=== PATIENT | male | born 1935 | race Caucasian/White ===

== ENCOUNTER → 2017-11-30 | Outpatient (CLI) | payer OTHER ==
[~2017-11-30] MED LIST: ANTIVERT25 MG PO; ASPIR 8181 MG PO; BRILINTA90 MG PO; CASODEX 50 MG T50 M1 PO; COMPAZINE10 MG PO; DULCOLAX5 MG PO; EULEXIN 125 MG125 MG PO; FLOMAX0.4 MG PO; LIPITOR 20 MG T20 M1 PO; MIRALAX17 GM PO; NITROGLYCERIN0.4 MG SUBLING; OMEPRAZOLE40 MG PO; ONDANSETRON HCL4 M2 PO; PEPCID20 MG PO; PHENERGAN 25 MG25 M1 PO; PROCARDIA XL30 MG PO; PROMETHAZINE12.5 M1 PO; PROTONIX40 M1 PO; SENOKOT-S1 TA1 PO; STOOL SOFTENER100 MG PO; TRANSDERM-SCO1 PATC1 TOP; TYLENOL325 MG PO
== END ==
LOC: M.NUC 11-24 11:43
DX: C61 Malignant neoplasm of prostate (principal); C79.51 Secondary malignant neoplasm of bone

== ENCOUNTER → 2017-12-02 | Outpatient (CLI) | payer OTHER | LOC: M.RAD 16:12 | DX: C79.51 Secondary malignant neoplasm of bone (principal); C61 Malignant neoplasm of prostate ==

== ENCOUNTER → 2018-04-14 | Outpatient (CLI) | payer OTHER | LOC: M.RAD 16:46 | DX: M17.11 Unilateral primary osteoarthritis, right knee (principal); M16.11 Unilateral primary osteoarthritis, right hip; C79.51 Secondary malignant neoplasm of bone; Z85.46 Personal history of malignant neoplasm of prostate ==

== ENCOUNTER 2018-07-14 18:17 | Inpatient (IN) | payer OTHER ==
[~2018-07-14] VITALS: Ht 175.3 cm; Wt 68.6 kg
--- NOTE | 2018-07-14 01:00 | NUR ---
NOTIFIED DR. SKINNER OF NO AVALIABILITY OF SUBQ CALCITONIN AND PHARMACY RECOMMENDATION OF PAMIDRONATE AT 0000. NO NEW ORDERS RECEIVED.
[~2018-07-14 18:17] MED LIST changes: -CASODEX 50 MG T50 M1 PO; -COMPAZINE10 MG PO; -PROCARDIA XL30 MG PO; -STOOL SOFTENER100 MG PO
[2018-07-14 18:42] VITALS: BP 169/55
[2018-07-14 18:47] LABS: ABSOLUTE BASOPHILS 0.1 thou/uL (0.0-0.2); ABSOLUTE EOSINOPHILS 0.1 thou/uL (0.0-0.7); ABSOLUTE LYMPHOCYTES 1.2 thou/uL (0.8-5.3); ABSOLUTE MONOCYTES 0.5 thou/uL (0.0-1.2); ABSOLUTE NEUTROPHILS 3.7 thou/uL (1.6-8.1); BASOPHILS 1.1 %; EOSINOPHILS 1.7 %; HEMATOCRIT 25.1 % (42.0-52.0); HEMOGLOBIN 8.3 gm/dL (14.0-18.0); LYMPHOCYTES 21.3 %; MCH 27.5 pg (26.0-34.0); MCHC 32.9 g/dL (28.0-37.0); MCV 83.5 fL (80.0-100.0); MONOCYTES 9.7 %; MPV 6.9 fl. (7.2-11.1); NUCLEATED RBCS 0 /100WBC; PLATELET COUNT* 313 thou/uL (150-400); POLYS 66.2 %; RDW-CV 13.9 % (10.5-14.5); WBC 5.7 thou/uL (4.0-11.0)
[2018-07-14 18:57] LABS: ANION GAP 3 mmol/L (7-16); APTT 23.3 Seconds (25.0-31.3); BUN 38 mg/dL (7-18); CHLORIDE 97 mmol/L (98-107); CO2 38 mmol/L (21-32); CREATININE 2.7 mg/dL (0.6-1.3); GLUCOSE 119 mg/dL (70-99); INR 1.1; POTASSIUM 3.9 mmol/L (3.5-5.1); PROTIME 11.4 Seconds (9.20-11.50); SODIUM 138 mmol/L (136-145)
[2018-07-14] MEDS ORDERED: CASODEX 50 MG T50 M1 PO (18:58)
[2018-07-14 19:15] LABS: ALBUMIN 3.7 g/dL (3.4-5.0); ALKALINE PHOSPHATASE 393 U/L (46-116); CALCIUM 13.8 mg/dL (8.5-10.1); CK-MB MASS 0.5 ng/mL (<0.5-3.6); NT-PRO BRAIN NAT PEPTIDE 2365 pg/mL (<300); SGOT 30 U/L (15-37); SGPT 18 U/L (30-65); TOTAL BILIRUBIN 0.2 mg/dL (<0.1-1.0); TOTAL PROTEIN 7.4 g/dL (6.4-8.2); TROPONIN-I LEVEL <0.06 ng/mL (<0.06)
[2018-07-14 20:21] LABS: URINE BILIRUBIN NEGATIVE (Negative); URINE BLOOD TRACE (Negative); URINE CLARITY CLEAR; URINE COLOR YELLOW; URINE GLUCOSE-RANDOM NEGATIVE (Negative); URINE KETONES NEGATIVE (Negative); URINE LEUKOCYTES-REFLEX NEGATIVE (Negative); URINE NITRITE-REFLEX NEGATIVE (Negative); URINE PROTEIN TRACE (Negative); URINE UROBILINOGEN 0.2 E.U./dl (0.2-1.0)
[2018-07-14 20:35] LABS: SQUAMOUS 4-10 Moderate /LPF (0-3)
[2018-07-14 20:36] LABS: BACTERIA-REFLEX 1-9 Few /HPF (None Seen); CASTS None Seen /LPF (None Seen); CRYSTALS None Seen /LPF (None Seen); URINE RBC 0-2 Rare /HPF (0-2); URINE WBC-REFLEX 0-5 Rare /HPF (0-5)
[2018-07-14 21:08] VITALS: BP 177/67
[2018-07-14 22:00] VITALS: BP 185/62
--- NOTE | 2018-07-14 22:00 | NUR ---
RECEIVED REPORT FROM ENDING MACHINE OPERATOR, SHRUTHI, AT 2104. PT ARRIVED TO UNIT VIA CART AT 2134. SON AT BEDSIDE. PATIENT ORIENTED TO ROOM AND CALL LIGHT. AGRICULTURE DEPARTMENT CHAIR IN PLACE, TRACING SB/SR. CALL LIGHT WITHIN REACH. FALL PRECAUTIONS IN PLACE.
[2018-07-15 00:33] VITALS: BP 142/51
[2018-07-15 04:00] VITALS: BP 118/55
[2018-07-15 05:15] LABS: ABSOLUTE EOSINOPHILS 0.1 thou/uL (0.0-0.7); ABSOLUTE LYMPHOCYTES 1.1 thou/uL (0.8-5.3); ABSOLUTE MONOCYTES 0.6 thou/uL (0.0-1.2); ABSOLUTE NEUTROPHILS 3.3 thou/uL (1.6-8.1); BASOPHILS 0.9 %; EOSINOPHILS 1.7 %; HEMATOCRIT 23.1 % (42.0-52.0); HEMOGLOBIN 7.5 gm/dL (14.0-18.0); LYMPHOCYTES 21.4 %; MCH 27.2 pg (26.0-34.0); MCHC 32.4 g/dL (28.0-37.0); MCV 83.7 fL (80.0-100.0); MONOCYTES 11.5 %; MPV 7.2 fl. (7.2-11.1); NUCLEATED RBCS 0 /100WBC; PLATELET COUNT* 262 thou/uL (150-400); POLYS 64.5 %; RBC 2.76 mil/uL (4.50-6.00); RDW-CV 13.8 % (10.5-14.5); WBC 5.1 thou/uL (4.0-11.0)
[2018-07-15 05:35] LABS: CREATININE 2.6 mg/dL (0.6-1.3); POTASSIUM 3.8 mmol/L (3.5-5.1)
[2018-07-15 05:48] LABS: CALCIUM 13.5 mg/dL (8.5-10.1)
[2018-07-15] MEDS ORDERED: COMPAZINE10 MG PO (07:00)
[2018-07-15] MEDS ORDERED: STOOL SOFTENER100 MG PO (07:00)
--- NOTE | 2018-07-15 07:30 | NUR ---
ASSUMED CARE OF PT ASSESSED AND DOCUMENTED. PT IS ON CARDIAC MONITER TRACING SR HR 61. PT IS ON ROOM AIR AND IS AFEBRILE. PT IS ON FALL PRECAUTIONS PER FACILITY PROTOCOL. SON IS AT BEDSIDE. PT HAS NO C/O PAIN. BED IS IN LOW POSITION CALL LIGHT IS IN REACH.
[2018-07-15 08:00] VITALS: BP 166/64
[2018-07-15 12:00] VITALS: BP 140/54
--- NOTE | 2018-07-15 14:54 | EKG ---
[place] [address] ELECTROCARDIOGRAM REPORT Name: DEBORAHJEFF AZUL Room: [address] ADM IN M.R.#: [id number] Admission: 07/14/18 Attend Phys: Kit Murdock MD Discharge: Date of : 39 Report #: [id number] THIS REPORT FOR: //name// [facility] ED Test Date: 2018-07-14 Test Time: 18:27:04 Pat Name: JEFF CABRERA Department: Room: [facility] Gender: Reporting Analyst: Sebas CHERY : 1935 Requested By: Haroon Trotter Order Number: [id number] MD: Juan Manuel Smith Measurements Intervals [place] Rate: 54 P: 77 IA: 139 QRS: 31 QRSD: 95 T: 55 QT: 413 QTc: 392 Interpretive Statements Sinus bradycardia Abnormal R-wave progression, early transition Inferior infarct, old Compared to ECG 11/22/2016 17:19:25 rate slowed Electronically Signed On 07-15-2018 14:54:13 CDT by Juan Manuel Smith [email or web address] <ELECTRONICALLY SIGNED> By: Juan Manuel Smith MD, [facility] 07/15/18 1454 1827 1827 Juan Manuel Smith MD, [facility] /EPI
--- NOTE | 2018-07-15 15:12 | NUR ---
SPOKE TO PATIENT TO DISCUSS HOME SITUATION, DISCHARGE PLANNING, AND TO INFORM OF THE ROLE OF CM. PATIENT'S NEPHEW AT THE BEDSIDE AND INFORMS THAT THE PATIENT'S 'SON HAD JUST LEFT, BUT WILL RETURN SOON'. PATIENT ALERT, BUT FORGETFUL. PATIENT RESIDES AT HOME ALONE, BUT HIS SON AND DIL LIVE IN A HOUSE BEHIND HIS ON THEIR 10 ACRES. PATIENT RECIEVES MEALS ON WHEELS, AND IS ABLE TO MICROWAVE THE MEALS HIMSELF. PATIENT OWNS A WALKER AND CANE, BUT MOSTLY USES THE CANE FOR MOBILITY. PATIENT CURRENTLY ON-SERVICE WITH HOSPICE FOR PALLIATIVE CARE. PATIENT HAS A HX OF HH WITH [facility]. CM WILL F/U WITH PATIENT'S SON TO DISCUSS DISCHARGE PLANNING NEEDS. CM WILL REMAIN AVAILABLE TO ASSIST AND FOLLOW NEEDED.
[2018-07-15 15:48] VITALS: BP 147/46
--- NOTE | 2018-07-15 17:40 | NUR ---
PT HAS RESTED IN HIS ROOM WITH SON AT BEDSIDE. HE HAS HAD NO C/O PAIN OF DISCOMFORT. PT PULLED OUT HIS IV. A NEW 20G IN L AC WAS PLACED. EDUCATION GIVEN ON DEMAND. HOURLY ROUNDING COMPLETE.
[2018-07-15 20:00] VITALS: BP 133/59
[2018-07-16] VITALS: BP 172/64; BP 189/77
[2018-07-16 04:00] VITALS: BP 189/77
--- NOTE | 2018-07-16 04:44 | NUR ---
ASSUMED PT CARE AT 1930. ASSESSMENT COMPLETED CHARTED. PT RESTING IN BED AT THIS TIME, ASKS TO BE TURNED FOR COMFORT. IV FLUIDS FINISHING. ABLE TO MAKE NEEDS KNOWN. SON BY AT THE BEGINNING OF SHIFT. NO C/O PAIN OR DISCOMFORT. WILL CONTINUE TO MONITOR.
[2018-07-16 05:48] LABS: ABSOLUTE EOSINOPHILS 0.1 thou/uL (0.0-0.7); ABSOLUTE LYMPHOCYTES 0.9 thou/uL (0.8-5.3); ABSOLUTE MONOCYTES 0.5 thou/uL (0.0-1.2); ABSOLUTE NEUTROPHILS 4.6 thou/uL (1.6-8.1); BASOPHILS 0.7 %; EOSINOPHILS 1.8 %; HEMATOCRIT 23.6 % (42.0-52.0); HEMOGLOBIN 7.7 gm/dL (14.0-18.0); LYMPHOCYTES 15.2 %; MCH 27.4 pg (26.0-34.0); MCHC 32.6 g/dL (28.0-37.0); MCV 84.1 fL (80.0-100.0); MONOCYTES 7.8 %; MPV 7.3 fl. (7.2-11.1); NUCLEATED RBCS 0 /100WBC; PLATELET COUNT* 268 thou/uL (150-400); POLYS 74.5 %; RBC 2.81 mil/uL (4.50-6.00); RDW-CV 14.1 % (10.5-14.5); WBC 6.2 thou/uL (4.0-11.0)
[2018-07-16 05:59] LABS: ALBUMIN 3.2 g/dL (3.4-5.0); CREATININE 2.5 mg/dL (0.6-1.3); POTASSIUM 3.1 mmol/L (3.5-5.1); TOTAL BILIRUBIN 0.2 mg/dL (<0.1-1.0); TOTAL PROTEIN 6.1 g/dL (6.4-8.2)
[2018-07-16 06:02] LABS: CALCIUM 12.7 mg/dL (8.5-10.1)
[2018-07-16 08:00] VITALS: BP 182/55
[2018-07-16 12:19] VITALS: BP 176/61
[2018-07-16 13:41] LABS: URINE BILIRUBIN NEGATIVE (Negative); URINE BLOOD 1+ (Negative); URINE CLARITY CLEAR; URINE COLOR YELLOW; URINE GLUCOSE-RANDOM NEGATIVE (Negative); URINE KETONES NEGATIVE (Negative); URINE LEUKOCYTES-REFLEX NEGATIVE (Negative); URINE NITRITE-REFLEX NEGATIVE (Negative); URINE PROTEIN TRACE (Negative); URINE UROBILINOGEN 0.2 E.U./dl (0.2-1.0)
[2018-07-16 13:53] LABS: BACTERIA-REFLEX 1-9 Few /HPF (None Seen); SQUAMOUS 4-10 Moderate /LPF (0-3); URINE RBC 3-10 Few /HPF (0-2); URINE WBC-REFLEX 0-5 Rare /HPF (0-5)
[2018-07-16 13:54] LABS: CRYSTALS None Seen /LPF (None Seen); FINE GRANULAR CASTS 0-3 Few /LPF (None Seen); HYALINE CASTS 0-3 Few /LPF (None Seen)
[2018-07-16 15:32] VITALS: BP 168/56
--- NOTE | 2018-07-16 18:48 | NUR ---
RECEIVED REPORT. ASSUMED CARE OF PT AROUND 0730. PT ALERT, ORIENTED TO SELF ONLY, VERY FORGETFULL BUT PLEASANT. ACCOUNT ANALYST IN PLACE TRACING SR WITH NO CHANGES THIS SHIFT. AM ASSESSMENT AND VITALS COMPLETED CHARTED. IV TO LEFT FA INTACT AND INFUSING IVF. PT HAS DENIED PAIN OR DISCOMFORT THIS SHIFT. PT SAT UP IN BEDSIDE CHAIR LATE THIS MORNING AND FOR LUNCH, THEN RESTED IN THE AFTERNOON. PT'S SON HAS BEEN AT BEDSIDE THROUGHOUT THE SHIFT. POTASSIUM REPLACED AND IS NOW IN NORMAL RANGE. PT UP TO BEDSIDE COMMODE WITH ASSISTANCE - HAD 3 BOWEL MOVEMENTS THIS SHIFT. VOIDING WITHOUT ISSUE. UA OBTANIED. PLAN FOR PT IS TO CONTINUE FLUIDS TO LOWER CALCIUM LEVELS. PT SLOWLY PROGRESSING TOWARDS GOALS. PT CURRENTLY RESTING IN BED. CALL LIGHT IS WITHIN REACH. FALL PRECAUTIONS IN PLACE. HOURLY ROUNDING PERFORMED. WCTM FOR DURATION OF SHIFT.
[2018-07-16 20:00] VITALS: BP 170/53
[2018-07-17] VITALS: BP 128/45; BP 154/63
[2018-07-17 04:00] VITALS: BP 185/73
--- NOTE | 2018-07-17 05:25 | NUR ---
ASSUMED PT CARE AT 1930. ASSESSMENT COMPLETED CHARTED. ABLE TO MAKE NEEDS KNOWN. [place] [facility] [place] RESTING MOST OF THE NIGHT WITH IVF. NO C/O PAIN, NAUSEA, OR DISCOMFORT. WILL CONTINUE TO MONITOR.
[2018-07-17 05:35] LABS: ABSOLUTE EOSINOPHILS 0.1 thou/uL (0.0-0.7); ABSOLUTE LYMPHOCYTES 0.5 thou/uL (0.8-5.3); ABSOLUTE MONOCYTES 0.3 thou/uL (0.0-1.2); ABSOLUTE NEUTROPHILS 2.8 thou/uL (1.6-8.1); BASOPHILS 0.9 %; EOSINOPHILS 1.6 %; HEMATOCRIT 21.1 % (42.0-52.0); LYMPHOCYTES 14.5 %; MCH 27.4 pg (26.0-34.0); MCV 83.1 fL (80.0-100.0); MONOCYTES 9.1 %; MPV 6.8 fl. (7.2-11.1); NUCLEATED RBCS 0 /100WBC; PLATELET COUNT* 218 thou/uL (150-400); POLYS 73.9 %; RBC 2.54 mil/uL (4.50-6.00); WBC 3.8 thou/uL (4.0-11.0)
[2018-07-17 06:13] LABS: ALBUMIN 2.9 g/dL (3.4-5.0); CALCIUM 10.8 mg/dL (8.5-10.1); CREATININE 2.3 mg/dL (0.6-1.3); POTASSIUM 3.2 mmol/L (3.5-5.1); TOTAL BILIRUBIN 0.3 mg/dL (<0.1-1.0); TOTAL PROTEIN 5.9 g/dL (6.4-8.2)
[2018-07-17 07:59] VITALS: BP 187/69
[2018-07-17 12:00] VITALS: BP 161/55
[2018-07-17 16:33] VITALS: BP 122/43
[2018-07-17 19:40] VITALS: BP 132/51
[2018-07-17 21:06] LABS: IgG 455 mg/dL (700-1600); IgM 53 mg/dL (15-143); eGFR IF AFRICAN AMERICAN 31 (>59)
[2018-07-18] VITALS: BP 153/56
[2018-07-18 02:06] LABS: PARATHYROID HORMONE 21 pg/mL (15-65)
[2018-07-18 03:07] LABS: IgA 35 mg/dL (61-437)
[2018-07-18 04:00] VITALS: BP 145/52
[2018-07-18 05:12] LABS: ABSOLUTE EOSINOPHILS 0.1 thou/uL (0.0-0.7); ABSOLUTE LYMPHOCYTES 0.9 thou/uL (0.8-5.3); ABSOLUTE MONOCYTES 0.5 thou/uL (0.0-1.2); ABSOLUTE NEUTROPHILS 2.7 thou/uL (1.6-8.1); BASOPHILS 0.9 %; EOSINOPHILS 1.3 %; MCH 27.3 pg (26.0-34.0); MCHC 32.9 g/dL (28.0-37.0); MONOCYTES 13.1 %; MPV 6.9 fl. (7.2-11.1); NUCLEATED RBCS 0 /100WBC; PLATELET COUNT* 195 thou/uL (150-400); POLYS 63.7 %; RBC 2.38 mil/uL (4.50-6.00); WBC 4.2 thou/uL (4.0-11.0)
[2018-07-18 05:40] LABS: ALBUMIN 2.8 g/dL (3.4-5.0); CALCIUM 9.5 mg/dL (8.5-10.1); CREATININE 2.2 mg/dL (0.6-1.3); TOTAL BILIRUBIN 0.2 mg/dL (<0.1-1.0); TOTAL PROTEIN 5.4 g/dL (6.4-8.2)
[2018-07-18 05:41] LABS: HEMATOCRIT 19.8 % (42.0-52.0); HEMOGLOBIN 6.5 gm/dL (14.0-18.0)
[2018-07-18 08:00] VITALS: BP 168/66
[2018-07-18 11:50] VITALS: BP 123/49; BP 127/73; BP 155/65
[2018-07-18 13:19] VITALS: BP 153/55
[2018-07-18 16:54] LABS: HEMATOCRIT 25.7 % (42.0-52.0)
[2018-07-18 16:58] LABS: HEMOGLOBIN 8.5 gm/dL (14.0-18.0)
[2018-07-18 19:40] VITALS: BP 157/59
--- NOTE | 2018-07-18 20:10 | NUR ---
PT A&OX3-4 PERIODS OF CONFUSION NOTED. PT RECEIVED BLOOD TRANSFUSION THIS SHIFT WITHOUT DIFFICULTY, NO S/S OF ADVERSE REACTION NOTED. PT UP TO RECLINER AND STATES "i DO FEEL A LITTLE BETTER," HOURLY ROUNDING MAINTAINED, CALL LIGHT IN REACH, HAS NO C/O PAIN
[2018-07-19] VITALS: BP 167/68
[2018-07-19 04:00] VITALS: BP 174/71
[2018-07-19 04:52] LABS: ABSOLUTE EOSINOPHILS 0.1 thou/uL (0.0-0.7); ABSOLUTE LYMPHOCYTES 0.9 thou/uL (0.8-5.3); ABSOLUTE MONOCYTES 0.6 thou/uL (0.0-1.2); ABSOLUTE NEUTROPHILS 3.7 thou/uL (1.6-8.1); BASOPHILS 0.9 %; HEMATOCRIT 25.7 % (42.0-52.0); HEMOGLOBIN 8.5 gm/dL (14.0-18.0); LYMPHOCYTES 16.6 %; MCH 27.5 pg (26.0-34.0); MCHC 33.2 g/dL (28.0-37.0); MCV 82.8 fL (80.0-100.0); MONOCYTES 11.6 %; MPV 6.9 fl. (7.2-11.1); NUCLEATED RBCS 0 /100WBC; PLATELET COUNT* 221 thou/uL (150-400); POLYS 68.9 %; WBC 5.3 thou/uL (4.0-11.0)
[2018-07-19 05:29] LABS: ALBUMIN 3.1 g/dL (3.4-5.0); CALCIUM 9.4 mg/dL (8.5-10.1); CREATININE 1.9 mg/dL (0.6-1.3); POTASSIUM 3.6 mmol/L (3.5-5.1); TOTAL BILIRUBIN 0.3 mg/dL (<0.1-1.0); TOTAL PROTEIN 6.4 g/dL (6.4-8.2)
[2018-07-19 08:00] VITALS: BP 176/54
--- NOTE | 2018-07-19 08:15 | NUR ---
VITALS WNL. SEE MAR. SEE CHARTING. FALL PRECAUTIONS IN PLACE. HOURLY ROUNDING FOR SAFETY.
[2018-07-19 12:08] LABS: KAPPA FREE LIGHT CHAINS 39.3 mg/L (3.3-19.4); LAMBDA FREE LIGHT CHAINS 11.7 mg/L (5.7-26.3)
[2018-07-19 13:12] VITALS: BP 155/57
--- NOTE | 2018-07-19 15:47 | NUR ---
[facility] PERSONNEL DIRECTOR SPOKE TO THE PATIENT AND FAMILY TO DISCUSS DISCHARGE PLANNING NEEDS AND SNF AT D/C. PATIENT, DTR, AND SON INFORM THAT THEY WOULD LIKE FOR THE PATIENT TO GO TO [facility], OR [facility] SPOKE TO [facility] WITH ADMISSIONS TO INFORM OF THE REFERRAL FOR SNF AND FAXED PATIENT'S CLINICAL INFO AND PT/OT NOTES. CM WILL REMAIN AVIALABLE TO ASSIST AND FOLLOW NEEDED.
[2018-07-19 16:00] VITALS: BP 132/53
--- NOTE | 2018-07-19 18:56 | NUR ---
RECEIVED REPORT FROM WILL RN. ASSUMED CARE OF PT AROUND 0730. PT ALERT, ORIENTED TO SELF, DATE/MONTH BUT NOT YEAR, AND PLACE. PT NOT FULLY ORIENTED TO SITUATION, STATES IT WAS "MANY ISSUES" THAT BROUGHT HIM TO THE HOSPITAL. INDUSTRIAL MILLWRIGHT IN PLACE TRACING SR TO SB WITH NO CHAGES THIS SHIFT. VSS. O2 SAT 98% ON RA. AM ASSESSMENT AND VITALS COMPLETED CHARTED. IV TO RIGHT FA INTACT AND SALINE LOCKED. PT HAS DENIED PAIN OR DISCOMFORT THIS SHIFT. PT HAS BEEN UP TO BEDSIDE COMMODE WITH SBA FREQUENTLY TO VOID. BM X1 THIS SHIFT. PT EATING AND DRINKING WITHOUT ISSUE. FAMILY AT BEDSIDE THROUGHOUT SHIFT. PT WORKED WITH PT AND OT THIS SHIFT. PT SLOWLY PROGRESSING TOWARDS GOALS. PT CURRENTLY RESTING IN BED. CALL LIGHT IS WITHIN REACH. FALL PRECAUTIONS ARE IN PLACE. HOURLY ROUNDING PERFORMED. WCTM FOR DURATION OF SHIFT.
[2018-07-19 19:40] VITALS: BP 139/44
[2018-07-20] VITALS: BP 171/73
[2018-07-20 04:00] VITALS: BP 171/70
[2018-07-20 05:08] LABS: HEMATOCRIT 27.9 % (42.0-52.0); HEMOGLOBIN 9.2 gm/dL (14.0-18.0); MCH 27.4 pg (26.0-34.0); MCHC 32.9 g/dL (28.0-37.0); MCV 83.3 fL (80.0-100.0); RBC 3.35 mil/uL (4.50-6.00); RDW-CV 14.1 % (10.5-14.5); WBC 5.4 thou/uL (4.0-11.0)
[2018-07-20 05:23] LABS: CALCIUM 9.1 mg/dL (8.5-10.1); CREATININE 1.8 mg/dL (0.6-1.3); MAGNESIUM 2.1 mg/dL (1.8-2.4); POTASSIUM 3.9 mmol/L (3.5-5.1)
--- NOTE | 2018-07-20 07:07 | NUR ---
VITALS WNL. SEE MAR. SEE CHARTING. FALL PRECAUTIONS IN PLACE. HOURLY ROUNDING FOR SAFETY.
--- NOTE | 2018-07-20 07:20 | NUR ---
CHANGE OF SHIFT BEDSIDE REPORT GIVEN PATIENT SEEN IN BED ASLEPP ASSUMED PATIENT CARE
[2018-07-20 07:53] VITALS: BP 171/74
--- NOTE | 2018-07-20 11:46 | NUR ---
TOW PICKER SPOKE TO GEORGIE WITH [facility] [place] AND SHE INFORMS THAT SHE WILL COME TO THE HOSPITAL TODAY TO SPEAK WITH THE PATIENT AND FAMILY TO DISCUSS POC. INFORMED THE RN IN-CHARGE PF THE PATIENT OF THIS INFO. CM WILL REMAIN AVAILABLE TO ASSIST AND FOLLOW NEEDED.
--- NOTE | 2018-07-20 11:53 | NUR ---
ORDERS NOTED FOR DC TO SNF. SPOKE WITH [facility] ORDERS FAXED. AWAIT CALL BACK WITH ACCEPTANCE AND AUTH. UPDATED PT
[2018-07-20 12:00] VITALS: BP 162/69
--- NOTE | 2018-07-20 14:17 | NUR ---
GEORGIE WITH [facility] ARRIVED TO DO AN ON-SITE VISIT WITH THE PATIENT, AND INFORMS THAT THE FACILITY SHOULD BE ABLE TO ACCEPT THE PATIENT AT D/C PENDING INSURANCE AUTH. SPOKE TO PATIENT'S SON TO INFORM OF THIS INFO, AND HE IS IN AGREEMENT. CM WILL REMAIN AVAILABLE TO ASSIST AND FOLLOW NEEDED.
[2018-07-20 16:00] VITALS: BP 120/50
[2018-07-20 20:00] VITALS: BP 126/41
[2018-07-21] VITALS: BP 160/69
[2018-07-21 04:00] VITALS: BP 169/71
--- NOTE | 2018-07-21 05:24 | NUR ---
ASSUMED PT CARE REPORT RECEIVED FROM NURSE. PT IS ALERT AWAKE ORIENTED X4. SINUS JUAN ON THE CLEAT BLANKER. PT SELPT DRUING WHOLE NIGHT. NO MED ADMITRATION PER ORDER. FALL PRECAUTION MAINTAINEED
--- NOTE | 2018-07-21 07:15 | NUR ---
CHANGE OF SHIFT BEDSIDE REPORT GIVEN PATIENT SEEN AT BEDSIDE IN BED ASLEEP ASSUMED PATIENT CARE
[2018-07-21 07:46] VITALS: BP 172/55
--- NOTE | 2018-07-21 11:36 | CON ---
[address] [address] CONSULTATION Name: DEBORAHANGELANA Mullen Room: [address] IN M.R.#: [id number] Admission: 07/14/18 Attend Phys: Kit Murdock MD Discharge: Date of : 39 Report #: [id number] THIS REPORT FOR: //name// CC: Kit Murdock Regla Britton DATE OF SERVICE: 07/15/2018 REQUESTING PHYSICIAN: Kit Murdock MD REASON FOR CONSULTATION: Hypercalcemia and acute kidney injury. 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 He was admitted with confusion. It was found to be hypercalcemic with calcium of around 14. His creatinine is also elevated, so he was started on fluids and I was consulted. PAST MEDICAL HISTORY: Prostate cancer diagnosed in 2016, followed by Dr. Gabriel. Also has history of TIA, history of coronary artery disease, and pyelonephritis. MEDICATIONS: Prior to admission reviewed. He was on ____ aspirin and Tylenol. FAMILY HISTORY: Noncontributory. SOCIAL HISTORY: Never smoked. Does not drink alcohol. REVIEW OF SYSTEMS: Positive for weakness. He had some confusion, so his review of system is unreliable. PHYSICAL EXAMINATION: GENERAL: He is awake and alert. VITAL SIGNS: His blood pressure now is 160/64 and heart rate 54, afebrile. HEENT: Pupils are round. NECK: Supple. LUNGS: Clear. CARDIOVASCULAR: Regular rate. ABDOMEN: Soft. LOWER EXTREMITIES: Trace edema. LABORATORY DATA: Report revealed serum sodium of 141, potassium 3.8, chloride 102, carbon dioxide 34, BUN 35, creatinine 2.6. Calcium is 13.5, it was 13.8 [place] [address] CONSULTATION Name: JEFF CABRERA Room: [address]#: [id number] Admission: 07/14/18 Attend Phys: Kit Murdock MD Discharge: Date of : 39 Report #: [id number] ASSESSMENT: An 82-year-old gentleman with metastatic prostate cancer involving the bones admitted with confusion. His confusion is likely due to hypercalcemia. Hypercalcemia is likely due to bone destruction due to metastatic disease. PLAN: To give him IV fluids and Lasix and also give him pamidronate. Overall, prognosis is very poor. Discussed with Dr. Murdock and with the patient's family. <ELECTRONICALLY SIGNED> By: Too Styles MD 07/21/18 1136 1051 1317Alexandr Aurelio Styles MD /nt
[2018-07-21 12:00] VITALS: BP 126/46
--- NOTE | 2018-07-21 14:34 | NUR ---
STILL AWAITING INSURANCE AUTH FOR SNF PER [facility]
--- NOTE | 2018-07-21 15:01 | NUR ---
Nutrition: Pt assessed for LOS. RX, labs, Hx noted. Admitted with AMS. Regular diet. Wt: 151#. Pt has discharge orders, but disch held d/t insurance auth for SNF. Still awaiting auth. No nutrition interventions at this time.
[2018-07-21 16:00] VITALS: BP 133/50
[2018-07-21 20:00] VITALS: BP 154/67
[2018-07-22] VITALS: BP 150/63
[2018-07-22 04:00] VITALS: BP 170/65
--- NOTE | 2018-07-22 04:35 | NUR ---
ASSUMED PT CARE AT 19:15 REPORT RECEIVED FROM NURSE. PT IS ALERT AWAKE ORIENTED X4 SINUS RYTHM ON THE MONITOR. ABLE TO REPOSITION HIMSELF IN BED. HIS VS ARE WITHIN NORMAL LIMIT. UP AT BEDSIDE FOR USE OF BEDSIDE COMMODE. PT BP IS 170/65 IN THE MORNING. HR 63. PT ASYMPTOMATIC.PT HAS HYDRALIZINE ORDERED PRN FOR BP GREATER THAN 180/100. SO NO INTERVENTION DONE. WILL CONTINUE TO MONITOR.
--- NOTE | 2018-07-22 07:00 | NUR ---
MIRALAX GIVEN PER PT REQUEST. PT HAD A BOWEL MOVEMENT THIS MORNING AT AROUND 0600. BM FORMED BROWN
[2018-07-22 08:45] VITALS: BP 173/78
--- NOTE | 2018-07-22 08:45 | NUR ---
ASSUMED PT. CARE AND RECEIVED REPORT AT 0730. PT A/OX3 WITH NOTED FORGETFULNESS. ON RA @ 98% DENIES CURRENT PAIN/SOB. UP TO CHAIR FOR BREAKFAST AND TOLERATING WELL. FULL ASSESSMENT COMPLETED, REFER TO CHARTING. PT. TO DC TODAY AT 1300 TO [facility]. SPOKE WITH PT. FAMILY ROLAND VIA PHONE, UPDATE GIVEN. CALL LIGHT IN REACH, FALL PRECUATIONS IN PLACE. WILL CONTINUE WITH PLAN OF CARE.
--- NOTE | 2018-07-22 08:46 | NUR ---
RECEIVED CALL FROM [facility], PT HAS BEEN ACCEPTED AND THEY HAVE INSURANCE AUTH. DC COIL WINDING SUPERVISOR/MARCELLA TO SET UP DC WITH [facility] AND PT
--- NOTE | 2018-07-22 10:45 | NUR ---
PRE PAROLE COUNSELING AIDE SPOKE TO THE PATIENT AND CONTACTED PATIENT'S SON TO INFORM OF [facility] ACCEPTANCE AND TIME OF TRANSPORT. PATIENT AND SON IN AGREEMENT. FAXED [facility] WITH [facility] ADMISSIONS PATIENT'S D/C ORDERS, AND SHE WILL SETUP TRANSPORT FOR 1300. SPOKE TO THE RN IN-CHARGE OF THE PATIENT TO INFORM OF [facility] ACCPETANCE, TIME OF TRANSPORT, AND WHERE TO CALL REPORT. CM WILL REMIAN AVAILABLE TO ASSIST AND FOLLOW NEEDED.
[2018-07-22] MEDS ORDERED: MIRALAX17 GM PO (11:47)
[2018-07-22 11:56] VITALS: BP 173/78
[2018-07-22 12:00] VITALS: BP 157/62
[2018-07-22] MEDS ORDERED: PROCARDIA XL30 MG PO (12:15)
--- NOTE | 2018-07-22 13:24 | NUR ---
DC ORDERS RECEIVED. IV AND MONITR REMOVED. PT. GIVEN COPY OF DC INSTRUCTIONS. REPORT CALLED TO FLACA AT [facility].
--- NOTE | 2018-07-23 09:32 | CON ---
[address] [address] CONSULTATION Name: JEFF CABRERA Room: [address] IN M.R.#: [id number] Admission: 07/14/18 Attend Phys: Kit Murdock MD Discharge: 07/22/18 Date of : 39 Report #: [id number] THIS REPORT FOR: //name// CC: Kit Arauz Britton DATE OF SERVICE: 07/15/2018 HISTORY OF PRESENT ILLNESS: This is an 82-year-old male patient who was evaluated by me for altered mental status. The patient's records were reviewed and the patient himself provides some history. Family provided some other history. Apparently, the patient has some memory issues for a year or so, but he has been worse in the last few weeks. His confusion has become worse and he has more difficulty in ambulating. It is mostly because of ataxia. He feels weak in generalized fashion. He has a prostatic carcinoma. The patient has renal failure and the patient has pretty significant hypercalcemia. The patient is on palliative care. He did undergo a CT scan of the head, which demonstrates finding consistent with metastasis there. He is going to see Oncology for that. REVIEW OF SYSTEMS: Indicate that this patient has a metastatic prostatic carcinoma. He has hypercalcemia, bone metastasis, a stroke in the past, hiatus hernia. This was his relevant 14-point review of systems. PAST MEDICAL HISTORY: Positive for metastatic prostatic carcinoma. FAMILY HISTORY: Negative for any early age stroke. SOCIAL HISTORY: He does not smoke or drink alcohol. PHYSICAL EXAMINATION: Indicates he is alert, responsive. He can follow simple commands. He is oriented. His cranial nerve examination 2-12 looks okay. His speech looks unremarkable. His strength, sensation, reflexes and tone look symmetrical. He appeared to have reasonable strength in the lower extremities, but he is having difficulty walking. He did do [id number]. He has difficulty seeing the finger, but according to him, this happened after his stroke and he cannot see very well. I asked them and they said it is pretty much unchanged. His position sense is intact. I could not look at the fundus. He is a moderately built individual who does not have any dysmorphic features of eyes, ears and face. His pulses are palpable. He has no edema, cyanosis or jaundice. Cardiac and respiratory examinations appeared noncontributory. Vital signs indicated a blood pressure of 140/54, respirations 16, pulse is 59, temperature is 98.4. LABORATORY DATA: Indicate hemoglobin of 7.4 and GFR of only 24 and calcium [address].5. 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 [place] [address] CONSULTATION Name: JEFF CABRERA Room: [address] IN [facility]#: [id number] Admission: 07/14/18 Attend Phys: Kit Murdock MD Discharge: 07/22/18 Date of : 39 Report #: [id number] IMPRESSION: I suspect the major portion of this patient's symptom is secondary to metabolic problem. He is hypercalcemic, is anemic and he may be nutritionally deprived. The question is how much more workup to rule out any myelopathy etc. need to be done. We will await the consultation with oncologist. If they think we need to carry out only comfort care, which may be desirable in this patient, then I do not think we will order any further workup. I will also discuss this patient with you. Thank you very much for this referral. <ELECTRONICALLY SIGNED> By: Renzo Holliday MD 07/23/18 0932 1330 [id number] Holliday MD /nt
== END 2018-07-22 13:50 | DRG 722 ==
LOC: M.ERS 18:17 → M.2W 18:50 → M.TBA-ER 18:50 → M.2W 21:07
PROVIDERS: Family Medicine; Internal Medicine; Internal Medicine Nephrology; ADMIT Internal Medicine
DX: C61 Malignant neoplasm of prostate (principal); N17.0 Acute kidney failure with tubular necrosis; G92 Toxic encephalopathy; C79.49 Secondary malignant neoplasm of other parts of nervous system; D63.0 Anemia in neoplastic disease; E87.6 Hypokalemia; I12.9 Hypertensive chronic kidney disease with stage 1 through stage 4 chronic kidney disease, or unspecified chronic kidney disease; N18.3 Chronic kidney disease, stage 3 (moderate); I25.10 Atherosclerotic heart disease of native coronary artery without angina pectoris; E83.52 Hypercalcemia; K21.9 Gastro-esophageal reflux disease without esophagitis; Z86.73 Personal history of transient ischemic attack (TIA), and cerebral infarction without residual deficits; Z85.46 Personal history of malignant neoplasm of prostate; Z85.830 Personal history of malignant neoplasm of bone; Z79.82 Long term (current) use of aspirin; Z79.899 Other long term (current) drug therapy; Z88.8 Allergy status to other drugs, medicaments and biological substances